=== PATIENT | female | born 1990 | race Caucasian/White ===

== ENCOUNTER → 2023-05-30 06:59 | Outpatient (REF) | payer OTHER, SELFPAY | LOC: PNTC 06:59 | PROVIDERS: ATTENDING PHYSICIAN Obstetrics & Gynecology | DX: O35.5XX0 Maternal care for (suspected) damage to fetus by drugs, not applicable or unspecified (principal) | CPT/HCPCS: 76816 ==

== ENCOUNTER → 2023-07-25 07:05 | Outpatient (REF) | payer OTHER, SELFPAY ==
--- NOTE | 2023-08-08 13:23 | CON.NAS ---
Consultation
-
Date/Time Consultation Requested: 07/24 1200
Date/Time Consultation Performed: 08/07 1300
Requesting Provider: dr camp
Performing Provider: dr forrest
Reason for Consultation: suboxone exposure
Neonatology SOFY Consult
History
/Para:
Gestational Age: < 37 weeks
Maternal History: Unremarkable
Current Medication: Subutex
Past Medication History: Methadone
Current Program Enrollment: Other ([facility] )
Social Service Status: Other
Maternal Labs
Blood Type: O Positive
Antibody Screen: Negative
Hep B S Ag: Negative
HIV: Nonreactive
RPR: Nonreactive
Rubella: Immune
Chlamydia/GC: Negative
Hep C: Negative
Consult
mom has delivered 3 years back baby with methadone exposure and was managed on pediatric floor, baby observed with no interventions. was updated re closure of pediatric floor and will be planning to have mom and baby on to follow [facility]
policy
Topics Discussed:
- Variation in presentation for opoid exposure and not dependent on the amount of medication
- Expected duration of observation, if asymptomatic
- Expect the baby to have symptoms, but not all symptoms need medication
- Non-pharmacologic measures to manage the symptoms include , skin to skin contact as much as possible, a dark quiet room etc.
- Care while on floor, observation
- Eat/sleep/console protocol, how it works, expectation from parents, what to expect from medical staff
- Transfer to pediatrics floor when mom is discharged as long as baby is stable otherwise
- Rescue doses of Morphine/how many/how often before starting on regular every 2-4 hr dosing
- Weaning protocol
- Phenobarbital if needed
- Social Service consult
Maternal Understanding:
1. Verbalizes understanding of [facility]
2. Verbalizes expectations from patient
3. Verbalizes expectations from staff
4. Verbalizes the understanding of eat/sleep/console management and everyone's role
Questions from parents:
moms family is not aware of suboxone exposure, will notify [facility] as there is concern how to plan home visit if its needed.
Face to Face Time
Total Ktaj-fu-Vvgz Time (in Minutes): 30
== END ==
LOC: PNTC 07:05
PROVIDERS: ATTENDING PHYSICIAN Obstetrics & Gynecology
DX: O35.5XX0 Maternal care for (suspected) damage to fetus by drugs, not applicable or unspecified (principal)
CPT/HCPCS: 76816

== ENCOUNTER → 2023-08-22 07:30 | Outpatient (REF) | payer OTHER, SELFPAY | LOC: PNTC 07:30 | PROVIDERS: ATTENDING PHYSICIAN Obstetrics & Gynecology | DX: O98.519 Other viral diseases complicating pregnancy, unspecified trimester (principal); U07.1 COVID-19 | CPT/HCPCS: 76816 ==

== ENCOUNTER 2023-09-20 06:58 | Inpatient (IN) | payer OTHER, SELFPAY ==
[2023-09-20 07:07] VITALS: BP 126/74; BMI 27.0
[2023-09-20 07:47] LABS: Hematocrit 32.9 % (37.0-47.0); Hemoglobin 10.7 g/dL (12.0-16.0); Mean Corp Hgb Conc. 32.5 g/dL (33.0-37.0); Mean Corpuscular Hgb 28.8 pg (27.0-31.0); Mean Corpuscular Volume 88.7 fL (81.0-99.0); Mean Platelet Volume 11.8 fL (7.4-10.4); Platelet Count 155 10^3/uL (130-400); Red Blood Cell Count 3.71 10^6/uL (4.20-5.40); Red Cell Dist. Width 12.4 % (11.5-14.5); White Blood Cell Count 6.7 10^3/uL (4.8-10.8)
[2023-09-20 08:49] LABS: Buprenorphine Positive (Negative)
[2023-09-20 08:50] LABS: Amphetamines Negative (Negative); Barbiturates Negative (Negative); Benzodiazepines Negative (Negative); Cocaine Negative (Negative); Marijuana Negative (Negative); Methadone Negative (Negative); Methamphetamines Negative (Negative); Opiates Negative (Negative); Phencyclidine Negative (Negative); Tricyclic Antidepressants Negative (Negative)
[2023-09-20] MEDS: CLEOCIN 50 IV (09:26)
[2023-09-20] MEDS: TYLENOL 1000 MG PO (09:27)
[2023-09-20] MEDS: BICITRA 30 ML PO (09:27)
[2023-09-20 10:06] LABS: Fentanyl, Urine Negative (Negative)
[2023-09-20] MEDS: GENTAMICIN 59.25 MG IV (14:13)
[2023-09-20] MEDS: SUBUTEX 8 MG SL (15:00)
[2023-09-20] MEDS: TORADOL 15 MG IV ×2 (17:10→22:54)
[2023-09-21 04:26] LABS: Hematocrit 30.3 % (37.0-47.0); Hemoglobin 10.3 g/dL (12.0-16.0); Mean Corpuscular Hgb 29.3 pg (27.0-31.0); Mean Corpuscular Volume 86.1 fL (81.0-99.0); Mean Platelet Volume 11.8 fL (7.4-10.4); Platelet Count 179 10^3/uL (130-400); Red Blood Cell Count 3.52 10^6/uL (4.20-5.40); Red Cell Dist. Width 12.5 % (11.5-14.5); White Blood Cell Count 9.8 10^3/uL (4.8-10.8)
[2023-09-21] MEDS: TORADOL 15 MG IV ×2 (05:15→11:18)
--- NOTE | 2023-09-21 08:00 | W.PN.ANS.POP ---
Anesthesia Post Operative
- Anesthesia Post Op Note
Vital Signs Stable-See Nursing Note: Yes
Airway Patent: Yes
Adequate Pain Control: Yes
Change in Mental Status: No
Current Postoperative Nausea & Vomiting: No
Anesthesia Complications: No
General Anesthetic Recall: No
Unplanned Admission: No
Post Op Hydration Adequate: Yes
- -
Pt awake and alert, resting comfortably with no anesthesia related c/o at time of post op visit.
[2023-09-21] MEDS: SUBUTEX 8 MG SL ×2 (09:01→15:09)
[2023-09-21] MEDS: PRENATAL PLUS 1 TABLET PO (09:01)
[2023-09-21] MEDS: MIRALAX 17 GRAMS PO (11:19)
[2023-09-21 13:18] LABS: Syphilis/T. pallidum Ab Reflex Negative (Negative)
--- NOTE | 2023-09-21 13:24 | CM ---
Met with new parents Albert
Parents have named their son Brad
Living in the home with parents are their son Lucas(3yo), and maternal grandparents
Mom plans to breast feed and has a pump
Parents report they have supplies for including car seat and crib
[facility]eds care - [facility] - sibling follows there as well
Given information for WIC program and -[facility]
CM Consulted for + Tox screen for Buprenorphine - Mom and baby
Baby's meconium - neg
Discussed with parents - mom admits to use - sees doctor through [facility] - telemed program
Takes Buprenorphine 8mg 2x/day per mom
Infant currently doinf SEC to monitor for symptoms
Explained to parents report to be reported to [facility]
Call placed to [facility] -
Spoke with Yaz Simon
Report made regarding + tox screen
Baby not to be discharged until cleared with [facility]
[2023-09-21] MEDS: MOTRIN 600 MG PO (21:11)
[2023-09-22] MEDS: SUBUTEX 8 MG SL ×2 (08:31→15:22)
[2023-09-22] MEDS: MIRALAX 17 GRAMS PO (08:31)
[2023-09-22] MEDS: PRENATAL PLUS 1 TABLET PO (08:31)
[2023-09-22] MEDS: TYLENOL 650 MG PO (20:54)
[2023-09-22] MEDS: MOTRIN 600 MG PO (20:54)
[2023-09-23] MEDS: TYLENOL 650 MG PO ×2 (05:47→19:41)
[2023-09-23] MEDS: MOTRIN 600 MG PO ×2 (05:47→19:41)
[2023-09-23] MEDS: SENOKOT-S 1 TABLET PO (08:05)
[2023-09-23] MEDS: SUBUTEX 8 MG SL ×2 (08:05→14:58)
[2023-09-23] MEDS: PRENATAL PLUS 1 TABLET PO (08:05)
[2023-09-23] MEDS: MIRALAX 17 GRAMS PO (08:05)
[2023-09-24] MEDS: PRENATAL PLUS 1 TABLET PO (07:57)
[2023-09-24] MEDS: MIRALAX 17 GRAMS PO (07:57)
[2023-09-24] MEDS: SUBUTEX 8 MG SL ×2 (07:57→14:45)
[2023-09-24] MEDS: MOTRIN 600 MG PO ×2 (08:00→13:54)
[2023-09-24] MEDS: SENOKOT-S 1 TABLET PO (08:03)
[2023-09-24 09:41] LABS: Hematocrit 31.7 % (37.0-47.0); Hemoglobin 10.4 g/dL (12.0-16.0); Mean Corp Hgb Conc. 32.8 g/dL (33.0-37.0); Mean Corpuscular Hgb 29.3 pg (27.0-31.0); Mean Corpuscular Volume 89.3 fL (81.0-99.0); Mean Platelet Volume 10.4 fL (7.4-10.4); Platelet Count 229 10^3/uL (130-400); Red Blood Cell Count 3.55 10^6/uL (4.20-5.40); Red Cell Dist. Width 12.6 % (11.5-14.5); White Blood Cell Count 6.4 10^3/uL (4.8-10.8)
[2023-09-24 09:52] LABS: ALT (SGPT) 37 U/L (0-35); AST (SGOT) 45 U/L (14-36)
[2023-09-24 10:50] LABS: Protein/creatinine Ratio 0.3; Urine Protein 11 mg/dl
[2023-09-25 04:32] LABS: Hemoglobin 9.5 g/dL (12.0-16.0); Mean Corp Hgb Conc. 32.8 g/dL (33.0-37.0); Mean Corpuscular Volume 88.4 fL (81.0-99.0); Mean Platelet Volume 10.6 fL (7.4-10.4); Platelet Count 227 10^3/uL (130-400); Red Blood Cell Count 3.28 10^6/uL (4.20-5.40); Red Cell Dist. Width 12.6 % (11.5-14.5); White Blood Cell Count 5.6 10^3/uL (4.8-10.8)
[2023-09-25 04:57] LABS: ALT (SGPT) 34 U/L (0-35); AST (SGOT) 38 U/L (14-36)
[2023-09-25] MEDS: SUBUTEX 8 MG SL (08:43)
[2023-09-25] MEDS: MIRALAX 17 GRAMS PO (08:43)
[2023-09-25] MEDS: PRENATAL PLUS 1 TABLET PO (08:43)
[2023-09-25] MEDS: SENOKOT-S 1 TABLET PO (08:43)
--- NOTE | 2023-09-25 11:50 | CM ---
Attended Plan of Safe Care via phone with parents and [facility] client experience specialist Brenda
cleared for d/c to home with parents
[facility] will continue to follow family and will be available for any needs that may arise
Infant cleared for d/c to home with parents
== END 2023-09-25 12:00 | disposition home or self-care (01) | DRG 787 ==
LOC: LDRP 06:58
PROVIDERS: Obstetrics & Gynecology; ADMITTING PHYSICIAN Obstetrics & Gynecology; FAMILY PHYSICIAN Family Medicine
PROC: 10D00Z1 Extraction of Products of Conception, Low, Open Approach (ICD-10-PCS; 2023-09-20)
DX: O34.211 Maternal care for low transverse scar from previous cesarean delivery (principal); F11.20 Opioid dependence, uncomplicated; Z37.0 Single live birth; Z3A.40 40 weeks gestation of pregnancy; O32.1XX0 Maternal care for breech presentation, not applicable or unspecified; J45.909 Unspecified asthma, uncomplicated; O99.52 Diseases of the respiratory system complicating childbirth; O48.0 Post-term pregnancy; Z98.82 Breast implant status; F50.9 Eating disorder, unspecified; O99.344 Other mental disorders complicating childbirth; F32.A Depression, unspecified; H53.8 Other visual disturbances; Z82.49 Family history of ischemic heart disease and other diseases of the circulatory system
CPT/HCPCS: 88307; 36415; 80306; 80307; 82570; 84156; 84450; 84460; 85027; 86780; 86850; 86900; 86901